=== PATIENT | female | born 1995 | race Caucasian/White ===

== ENCOUNTER 2019-04-09 23:04 | Emergency (ER) | payer OTHER ==
[~2019-04-09] VITALS: Ht 152.4 cm; Wt 49.4 kg
[~2019-04-09 23:04] MED LIST: LEVE250T2 PO
[2019-04-09 23:30] VITALS: BP 120/70
[2019-04-10 00:36] LABS: APPEARANCE,URINE SL CLOUDY (CLEAR); BILIRUBIN,URINE NEGATIVE (NEGATIVE); BLOOD, URINE NEGATIVE (NEGATIVE); COLOR,URINE YELLOW (YELLOW); LEUKOCYTE ESTERASE ,URINE NEGATIVE (NEGATIVE); NITRITE, URINE NEGATIVE (NEGATIVE); UGLUCOSE NEGATIVE (NEGATIVE)
[2019-04-10] MEDS ORDERED: KETOROLAC 30 MG/ML VIAL IM ONE (01:00)
[2019-04-10] MEDS ORDERED: KETOROLAC 60 MG/2 ML VIAL IM ONE (01:13)
[2019-04-10 01:45] VITALS: BP 120/70
== END 2019-04-10 01:45 | disposition home or self-care (01) ==
LOC: MED 23:04
DX: M54.41 Lumbago with sciatica, right side (principal); Z79.899 Other long term (current) drug therapy
CPT/HCPCS: 81002; 81003; 81025; 96372; 99283; J1885

== ENCOUNTER 2019-07-19 09:18 | Inpatient (IN) | payer OTHER ==
[~2019-07-19] VITALS: Ht 152.4 cm; Wt 49.9 kg
[2019-07-19 09:36] VITALS: BP 113/72
--- NOTE | 2019-07-19 09:55 | NUR ---
24 y/o F presents to ER c/o upper right sided back/rib pain x1 month. Pain level 9/10, sharp constant pain. Per pt pain is relieved when sitting up, worsened when laying down. Pt also c/o urinary burning x 1 week. ERMD made aware of pt status. NKA med hx: seizures
--- NOTE | 2019-07-19 09:59 | NUR ---
Pt ambulated to restroom to provide urine sample.
[2019-07-19] MEDS ORDERED: KETOROLAC 30 MG/ML VIAL IVP ONE (10:50)
[2019-07-19] MEDS ORDERED: NACL 0.9% 1,000 ML IV ONE (10:50)
[2019-07-19] MEDS ORDERED: cefTRIAXone 1,000 MG VIAL ONE (11:58)
[2019-07-19] MEDS ORDERED: KETOROLAC 30 MG/ML VIAL ONE ×2 (11:58→13:33)
--- NOTE | 2019-07-19 13:22 | NUR ---
ASKED PT TO PROVIDE ANOTHER URINE SAMPLE, CUP PROVIDED, PT VERBALIZED UNDERSTANDING.
[2019-07-19] MEDS ORDERED: PROPOFOL 200 MG/20 ML VIAL IV ONE (13:33)
[2019-07-19] MEDS ORDERED: ROCURONIUM 50 MG/5 ML VIAL IV ONE (13:33)
[2019-07-19] MEDS ORDERED: ONDANSETRON 4 MG/2 ML VIAL ONE (13:33)
[2019-07-19] MEDS ORDERED: SUCCINYLCHOLINE CHLORIDE 200 MG/10 ML VIAL IVP ONE (13:33)
[2019-07-19] MEDS ORDERED: DEXAMETHASONE 4 MG/ML VIAL ONE (13:33)
[2019-07-19] MEDS ORDERED: DESFLURANE 240 ML BTL INH ONE (13:33)
[2019-07-19] MEDS ORDERED: LIDOCAINE 2% 100 MG/5 ML SYR IVP ONE (13:33)
--- NOTE | 2019-07-19 13:48 | NUR ---
PT PROVIDED URINE SAMPLE, SAMPLE SENT TO LAB
[2019-07-19 13:56] LABS: APPEARANCE,URINE CLOUDY (CLEAR); BILIRUBIN,URINE NEGATIVE (NEGATIVE); BLOOD, URINE 2+ (NEGATIVE); COLOR,URINE YELLOW (YELLOW); LEUKOCYTE ESTERASE ,URINE NEGATIVE (NEGATIVE); NITRITE, URINE NEGATIVE (NEGATIVE); UGLUCOSE NEGATIVE (NEGATIVE)
[2019-07-19 14:18] LABS: WBC,URINE 0-5 /HPF (0-5)
[2019-07-19 14:19] LABS: HYALINE CASTS, URINE 0-10 /LPF (None Seen)
--- NOTE | 2019-07-19 15:15 | NUR ---
Pt going to CT via wheelchair. Pt awake and alert.
--- NOTE | 2019-07-19 16:00 | NUR ---
Pt awake and alert. Respirations even and unlabored. Family at bedside. Will continue to monitor.
--- NOTE | 2019-07-19 17:00 | NUR ---
Pt requesting snacks. Dr. Cano okayed to have snacks.
--- NOTE | 2019-07-19 18:12 | NUR ---
Updated plan of care with pt and family member.
--- NOTE | 2019-07-19 19:12 | NUR ---
Transfer of care and report given to FANNIE Grimaldo
[2019-07-19 19:35] VITALS: BP 124/67
--- NOTE | 2019-07-19 19:35 | NUR ---
RECIEVED PT FROM ER /WHEELCHAIR , AMBULATES TO BED , AAOX4 , NID IV SITE INTACT AND PATENT , NPO - RE INSTRUCTED . ADM. ASSESSMENT DONE . POC INSTRUCTED AND VERBALIZED UNDERSTANDING - CALL LIGHT WITHIN REACH . WITH C/O ABDL PAIN - WILL MEDICATE , WILL CONT. TO MONITOR.
--- NOTE | 2019-07-19 19:48 | NUR ---
Patient will be admitted to care of DR ADORNO. Admited to MED SURG . Will go to [id number]. Belongings list completed. Report to FANNIE LR.
[2019-07-19] MEDS ORDERED: diphenhydrAMINE 50 MG/ML VIAL IVP PRN (20:15)
[2019-07-19] MEDS ORDERED: LORazepam 2 MG/ML VIAL IVP PRN (20:15)
[2019-07-19] MEDS ORDERED: ZOLPIDEM 5 MG TAB PO PRN (20:15)
[2019-07-19] MEDS ORDERED: MAG SULF 2000 MG/WATER PREMIX 50 ML IV PRN (20:15)
[2019-07-19] MEDS ORDERED: POTASSIUM CHLORIDE 10 MEQ TABER PO PRN (20:15)
[2019-07-19] MEDS ORDERED: MAGNESIUM OXIDE 400 MG TAB PO PRN (20:15)
[2019-07-19] MEDS ORDERED: LEVOFLOXACIN 500 MG/D5W PREMIX 100 ML IV SCH (20:15)
[2019-07-19] MEDS: HYDROcodone/APAP 5/325 MG 1 TAB TAB PO PRN (21:14)
--- NOTE | 2019-07-19 22:00 | NUR ---
MADE ROUNDS . NO S/SXS OF ACUTE DISTRESS NOTED AT THIS TIME . WILL CONT. TO MONITOR.
[2019-07-19] MEDS: metroNIDAZOLE 500 MG/NS PREMIX 100 ML IV SCH (22:30)
[2019-07-19] MEDS ORDERED: levETIRAcetam 500 MG TAB ONE (22:41)
[2019-07-19] MEDS: DEXT 5% / NACL 0.45% 1,000 ML IV SCH (22:45)
[2019-07-19] MEDS: ONDANSETRON 4 MG/2 ML VIAL IVP PRN (23:46)
--- NOTE | 2019-07-20 | NUR ---
MADE ROUNDS , NO S/SXS OF ACUTE DISTRESS NOTED AT THIS THIS . WILL CONT. TO MONITOR.
--- NOTE | 2019-07-20 02:00 | NUR ---
MADE ROUNDS . RESP. UNLABORED AND EVEN . WILL CONT. TO MONITOR. - SOFT ABD.
--- NOTE | 2019-07-20 04:00 | NUR ---
RESTING ON BED . NOT ON DISTRESS - CALL LIGHT WITHIN REACH.
[2019-07-20] MEDS: metroNIDAZOLE 500 MG/NS PREMIX 100 ML IV SCH ×3 (05:52→21:00)
--- NOTE | 2019-07-20 06:00 | NUR ---
MADE ROUNDS . WITH BEARABLE PAIN SHE SAID . WILL CONT. TO MONITOR.
[2019-07-20 06:55] LABS: BASOPHILS % (AUTO) 0.4 % (0.0-2.0); EOSINOPHILS # (AUTO) 0.2 K/uL (0-0.4); EOSINOPHILS % (AUTO) 2.7 % (0.0-4.0); HEMATOCRIT 38.5 % (36-48); HEMOGLOBIN 12.7 g/dL (12.0-16.0); LYMPHOCYTES # (AUTO) 4.1 K/uL (2.5-16.5); LYMPHOCYTES % (AUTO) 47.3 % (20.5-51.1); MEAN CORPUSCULAR HEMOGLOBIN 29 pg (27-31); MEAN CORPUSCULAR HGB CONC 33 g/dL (33-37); MEAN CORPUSCULAR VOLUME 88.5 fL (80-94); MONOCYTES # (AUTO) 0.8 K/uL (0.8-1.0); MONOCYTES % (AUTO) 9.4 % (1.7-9.3); NEUTROPHILS # (AUTO) 3.5 K/uL (1.8-7.7); NEUTROPHILS % (AUTO) 40.2 % (42.2-75.2); PLATELET COUNT (AUTO) 329 K/uL (140-450); RED BLOOD CELL COUNT(AUTO) 4.34 MIL/uL (4.20-5.40); RED CELL DISTRIBUTION WIDTH 12.9 % (11.6-13.7); WHITE BLOOD COUNT (AUTO) 8.6 K/uL (4.8-10.8)
--- NOTE | 2019-07-20 07:10 | NUR ---
ENDORSED TO AM SHIFT FOR CONT. OF CARE . NPO
--- NOTE | 2019-07-20 07:10 | NUR ---
RECEIVED BEDSIDE REPORT FROM CURATOR NATURAL HISTORY MUSEUM NURSE. PT IS ASLEEP. NO S/S OF DISTRESS OR SOB. PT IS ON ROOM AIR. SKIN IS INTACT. IV SITE L AC 20 G, INFUSING D5 1/2 NS 80 ML/HR. PT IS NPO FOR POSSIBLE CHOLECYSTECTOMY TODAY. CALL LIGHT IS WITHIN REACH. WILL CONTINUE TO MONITOR.
[2019-07-20 07:22] LABS: ALBUMIN 3.2 g/dL (3.4-5.0); ANION GAP 12.2 (8-16); CARBON DIOXIDE 27.7 mmol/L (21-32); CREATININE 0.5 mg/dL (0.6-1.3); MAGNESIUM 1.9 mg/dL (1.8-2.4); POTASSIUM 3.9 mmol/L (3.5-5.1); TOTAL BILIRUBIN 0.2 mg/dL (0.0-1.0)
[2019-07-20 07:58] LABS: PROTHROMBIN TIME 9.9 secs (10.8-13.4)
[2019-07-20 08:00] VITALS: BP 102/51
--- NOTE | 2019-07-20 08:37 | NUR ---
PATIENT HAS BEEN SCREENED AND CATEGORIZED MODERATE NUTRITION RISK. PATIENT WILL BE SEEN WITHIN 3-5 DAYS OF ADMISSION. 07/22/19 07/24/[address]
--- NOTE | 2019-07-20 09:15 | NUR ---
DC PLANNING: A 24 YEAR OLD FEMALE FROM HOME, WHO CAME IN DUE TO RIGHT FLANK PAIN ASSOCIATED WITH NAUSEA. INITIAL DIAGNOSIS OF GALLSTONES, ABDOMINAL PAIN. DENIES MEDICAL HISTORY. CURRENT LABS INCLUDE WBC 8.6, H/H 12.7/38.5, BUN/CREA 9/0.5. CT ABD/PELVIS SHOWED CHOLELITHIASIS WITHOUT SECONDARY SIGNS OF CHOLECYSTITIS. GALLBLADDER U/S CHOLELITHIASIS. SURGICAL CONSULT WITH DR. MEDINA FOR GALLSTONES, ABD PAIN. ON LEVOFLOXACIN. DC PLAN TO HOME ONCE STABLE.
--- NOTE | 2019-07-20 09:33 | NUR ---
OBTAINED PT'S CONSENT FOR CHOLECYSTECTOMY
[2019-07-20] MEDS: levETIRAcetam 500 MG TAB PO SCH ×2 (10:31→22:08)
[2019-07-20] MEDS: ACETAMINOPHEN 325 MG TAB PO PRN (10:32)
[2019-07-20] MEDS: DEXT 5% / NACL 0.45% 1,000 ML IV SCH (11:30)
--- NOTE | 2019-07-20 11:38 | NUR ---
Diesel Crane Operator Note: Basic Screen: Yes High Risk DC Screen [place]: KARLA Olvera Relationship: SISTER Pre-Admission Living Arrangements: Lives with Other Prior ADL Independent Current Home Health Name/Tel: N/A Current DME/02 Name/Tel: N/A Current Hospice Name/Tel: N/A Current Dialysis Name/Tel: N/A Healthcare Decision Maker: Patient Advance Directive No - REFUSED Physician Orders for Life Sustaining Treatment Form No Patient/Family Have Educational Needs No Information Taught: Community Resources Person Taught: Patient Teaching Tools: Verbal Factors Affecting Learning: None Participation Level: Active Evaluation: Verbalizes Understanding Needs Additional Education: No Discipline: Case Mgt/Social Svcs Tentative Discharge Plan/Destination: No Needs Identified Will require assistance post discharge: No Referred to Plant Biology Professor: No Tentative Discharge Plan Summary: Patient is a 24-year-old female admitted for gallstones and abdominal pain. Patient has no significant PHMX. Patient was admitted from home. SW met with patient to verify demographics with patient. Patient stated she lives at home with parents. Patient reports no history of mental health and no history of substance abuse. Patient's tentative discharge plan is to return home. No further needs identified. Signature: ALBERT Gutiérrez Date: Jul 20, 2019 Time: 11:37
[2019-07-20] MEDS: LIDOCAINE 1% 500 MG/50 ML VIAL ONE ×2 (13:08→15:16)
[2019-07-20] MEDS: BUPIVACAINE-MPF/EPI 0.25% 30 ML VIAL INJ ONE ×2 (13:09→15:15)
--- NOTE | 2019-07-20 13:10 | NUR ---
PT TAKEN OFF UNIT FOR CHOLECYSTECTOMY.
[2019-07-20] MEDS ORDERED: HYDROmorphone 1 MG/ML AMP IVP PRN (14:15)
[2019-07-20] MEDS ORDERED: ONDANSETRON 4 MG/2 ML VIAL IVP PRN (14:15)
--- NOTE | 2019-07-20 15:30 | NUR ---
PT IS BACK FROM CHOLECYSTECTOMY. TOLERATED WELL. VS ARE STABLE: BP 117/75, HR 69, TEMP 97.6, RR 18, O2 98%, PAIN 10/18. WILL CONTINUE TO MONITOR. Addendum: 07/20/19 at 1747 by Basilia Larson RN THREE SMALL LAP INCISIONS PRESENT OVER THE UPPER ABDOMEN, BROKERAGE COORDINATOR.
[2019-07-20 16:00] VITALS: BP 114/75
[2019-07-20] MEDS: MORPHINE SULFATE 2 MG/ML SYR IVP PRN ×2 (16:47→22:15)
[2019-07-20] MEDS: ONDANSETRON 4 MG/2 ML VIAL IVP PRN ×2 (16:47→23:37)
--- NOTE | 2019-07-20 17:43 | NUR ---
PT IS VISITING WITH FAMILY AT BEDSIDE AND HAVING A SNACK. TOLERATING SOLID FOOD AND LIQUIDS WELL. IV MORPHINE ADMINISTERED FOR POST-OP ABD PAIN.
--- NOTE | 2019-07-20 18:15 | NUR ---
PT EATING DINNER, NO C/O PAIN OR DISTRESS AT THIS TIME. FAMILY AT BEDSIDE.
--- NOTE | 2019-07-20 19:11 | NUR ---
RECIEVED PT. AAOX4 , NID , IV SITE INTACT AND PATENT , NO ACTIVE BLEEDING NOTED AT SURGICAL SITE . HAD GOOD U.O - POST OP. PLAN OF CARE DISCUSSED AND JOANN UNDERSTANDING - CALL LIGHT WITHIN REACH . WILL CONT. TO MONITOR.
--- NOTE | 2019-07-20 19:27 | NUR ---
PT ENDORSED TO DIRECTOR OF PAYROLL NURSE IN STABLE CONDITION
[2019-07-20] MEDS ORDERED: LEVOFLOXACIN 500 MG/D5W PREMIX 100 ML IV SCH (22:00)
--- NOTE | 2019-07-20 23:00 | NUR ---
C/O N/V - WILL MEDICATE W/ ZOFRAN OREDERED . WILL CONT. TO MONITOR.
--- NOTE | 2019-07-21 00:30 | NUR ---
VOMITED - MOD. AMT. - JUST MEDICATED W/ ZOFRAN - WILL CONT. TO MONITOR.
[2019-07-21] MEDS: ACETAMINOPHEN 325 MG TAB PO PRN (00:39)
--- NOTE | 2019-07-21 00:39 | NUR ---
AFEBRILE , TYLENOL GIVEN FOR PAIN PER PT'S REQUEST.WILL CONT. TO MONITOR.
[2019-07-21 03:00] VITALS: BP 110/62
--- NOTE | 2019-07-21 03:11 | NUR ---
COMPLAINING UNABLE TO SLEEP - AMBIEN /TAB GIVEN ORDERD. WILL CONT. TO MONITOR.
--- NOTE | 2019-07-21 04:00 | NUR ---
MADE ROUNDS , SLEEPING - CHEST RISE AND FALL EQUALLY.
[2019-07-21] MEDS: DEXT 5% / NACL 0.45% 1,000 ML IV SCH ×2 (04:56)
[2019-07-21] MEDS: metroNIDAZOLE 500 MG/NS PREMIX 100 ML IV SCH ×2 (04:57→13:35)
--- NOTE | 2019-07-21 06:00 | NUR ---
SLEEPY - AWAKEABLE - NO S/SXS OF ACUTE DISTRESS NOTED AT THIS TIME - WILL CONT. TO MONITOR
--- NOTE | 2019-07-21 07:15 | NUR ---
ENDORSED TO AM SHIFT FOR CONT. OF CARE PT IS ON STABLE CONDITION.
--- NOTE | 2019-07-21 07:16 | NUR ---
RECEIVED REPORT FROM MEDICAL TECHNICIANS NURSE BE FOR CONTINUITY OF CARE. PT IN STABLE CONDITION. RESPIRATIONS EVEN AND UNLABORED, ROOM AIR. IV INTACT AND PATENT. SAFETY MEASURES IN PLACE. BED IN LOW POSITION. CALL LIGHT AT BEDSIDE. WILL CONTINUE TO MONITOR.
[2019-07-21] MEDS: levETIRAcetam 500 MG TAB PO SCH (09:48)
[2019-07-21] MEDS: ONDANSETRON 4 MG/2 ML VIAL IVP PRN (09:50)
[2019-07-21] MEDS: HYDROcodone/APAP 5/325 MG 1 TAB TAB PO PRN ×2 (10:03→16:26)
--- NOTE | 2019-07-21 10:03 | NUR ---
GAVE ORDERED DUE MEDICATIONS AT THIS TIME. PT TOLERATED WELL. WILL CONTINUE TO MONITOR. GAVE PRN PAIN MEDICATION PER PT REQUEST. PT TOLERATED WELL.
--- NOTE | 2019-07-21 12:45 | NUR ---
PT SITTING UP IN BED EATING LUNCH AT THIS TIME. BED IN LOW POSITION. CALL LIGHT AT BEDSIDE. WILL CONTINUE TO MONITOR.
--- NOTE | 2019-07-21 14:00 | NUR ---
ANDREW MILLER DR., D.O. 100MG DOCUSATE SODIUM DAILY. GIVE ONE NOW.
[2019-07-21] MEDS ORDERED: DOCUSATE SODIUM 100 MG GELCAP PO SCH (14:31)
--- NOTE | 2019-07-21 17:30 | NUR ---
GAVE DISCHARGE INSTRUCTIONS AND PRESCRIPTION TO TAKE TO HOME PHARMACY. PT VERBALIZED UNDERSTANDING OF INSTRUCTIONS. IV REMOVED, LUMEN INTACT. ID BAND REMOVED. PT WHEELED TO LOBBY WHERE FAMILY WAITING WITH VEHICLE. PT IN STABLE CONDITION.
[2019-07-22] MEDS ORDERED: DOCUSATE SODIUM 100 MG GELCAP PO SCH (09:00)
--- NOTE | 2019-07-25 15:44 | NUR ---
PCP Appointment: BARBARA contacted Cameron at Dr. Cher Raza's office to schedule hospital follow up appointment [phone]. Appointment is at 1400 on 07/27/2019 @ [facility] [place] [address]. Patient was notified. No further needs identified.
== END 2019-07-21 17:30 | disposition home or self-care (01) | DRG 263 ==
LOC: MED 09:18 → MTU 19:00 → MMU 07-20 21:40
PROVIDERS: ADMIT Internal Medicine Pulmonary Disease; ATTEND Internal Medicine Pulmonary Disease
PROC: 0FT44ZZ Resection of Gallbladder, Percutaneous Endoscopic Approach (ICD-10-PCS; principal; 2019-07-20 13:30)
DX: K80.00 Calculus of gallbladder with acute cholecystitis without obstruction (principal)
CPT/HCPCS: 36415; 76705; 80053; 81001; 81025; 82150; 83690; 83735; 85025; 85610; 85730; 86886; 86900; 86901; 87081; 88304; 96365; 96375; 99285; J0330; J0696; J1100; J1885; J1956; J2001; J2270; J2405; J2704; J3490; J7030; J7060; Q0092